=== PATIENT | female | born 1985 | race Asian ===

== ENCOUNTER 2020-08-17 07:04 | Inpatient (IN) | payer OTHER, SELFPAY ==
[~2020-08-17] VITALS: Ht 160 cm; Wt 59.0 kg
--- NOTE | 2020-08-17 08:37 | NUR ---
PATIENT HAS BEEN SCREENED AND CATEGORIZED LOW NUTRITION RISK. PATIENT WILL BE SEEN WITHIN 7 DAYS OF ADMISSION. 08/23/[address]
[2020-08-17 09:22] VITALS: BP 97/52
[2020-08-17] MEDS: TERBUTALINE 2.5 MG TAB PO SCH (20:13)
[2020-08-18] MEDS: TERBUTALINE 2.5 MG TAB PO SCH ×2 (02:04→08:17)
== END 2020-08-18 19:35 | disposition home or self-care (01) | DRG 833 ==
LOC: MLD 07:04 → OBSVTOIN 07:41
PROVIDERS: ADMIT Obstetrics & Gynecology; ATTEND Obstetrics & Gynecology
DX: O46.93 Antepartum hemorrhage, unspecified, third trimester (principal); Z3A.37 37 weeks gestation of pregnancy
CPT/HCPCS: 76815; G0378; Q0092

== ENCOUNTER 2020-08-24 02:55 | Inpatient (IN) | payer OTHER, SELFPAY ==
[~2020-08-24] VITALS: Ht 157.5 cm; Wt 59.4 kg
[2020-08-24] MEDS ORDERED: METHYLERGONOVINE 0.2 MG/ML AMP IM PRN (03:15)
[2020-08-24] MEDS ORDERED: CARBOPROST 250 MCG/ML AMP IM PRN (03:15)
[2020-08-24] MEDS ORDERED: OXYTOCIN 10 UNITS/ML VIAL IM SCH (03:15)
[2020-08-24] MEDS ORDERED: LACTATED RINGERS 1,000 ML IV SCH ×2 (03:15→07:10)
[2020-08-24 03:45] LABS: BASOPHILS % (AUTO) 0.8 % (0.0-2.0); EOSINOPHILS % (AUTO) 0.5 % (0.0-4.0); HEMATOCRIT 33.2 % (36-48); HEMOGLOBIN 11.1 g/dL (12.0-16.0); LYMPHOCYTES # (AUTO) 1.6 K/uL (2.5-16.5); LYMPHOCYTES % (AUTO) 27.6 % (20.5-51.1); MEAN CORPUSCULAR HEMOGLOBIN 31 pg (27-31); MEAN CORPUSCULAR HGB CONC 33 g/dL (33-37); MEAN CORPUSCULAR VOLUME 91.9 fL (80-94); MONOCYTES # (AUTO) 0.4 K/uL (0.8-1.0); NEUTROPHILS # (AUTO) 3.9 K/uL (1.8-7.7); NEUTROPHILS % (AUTO) 65.1 % (42.2-75.2); PLATELET COUNT (AUTO) 240 K/uL (140-450); RED BLOOD CELL COUNT(AUTO) 3.61 MIL/uL (4.20-5.40); RED CELL DISTRIBUTION WIDTH 13.6 % (11.6-13.7)
[2020-08-24 03:56] LABS: APPEARANCE,URINE CLEAR (CLEAR); BILIRUBIN,URINE NEGATIVE (NEGATIVE); BLOOD, URINE 1+ (NEGATIVE); COLOR,URINE YELLOW (YELLOW); LEUKOCYTE ESTERASE ,URINE NEGATIVE (NEGATIVE); NITRITE, URINE NEGATIVE (NEGATIVE); UGLUCOSE NEGATIVE (NEGATIVE)
[2020-08-24 03:58] LABS: ALBUMIN 2.3 g/dL (3.4-5.0); ANION GAP 16.8 (8-16); CREATININE 0.5 mg/dL (0.6-1.3); POTASSIUM 3.8 mmol/L (3.5-5.1); TOTAL BILIRUBIN 0.3 mg/dL (0.0-1.0)
[2020-08-24 04:23] LABS: WBC,URINE 0-5 /HPF (0-5)
[2020-08-24] MEDS ORDERED: CITRIC ACID/SODIUM CITRATE 30 ML UDC PO ONE (04:45)
[2020-08-24] MEDS ORDERED: CITRIC ACID/SODIUM CITRATE 30 ML UDC ONE (04:49)
[2020-08-24] MEDS ORDERED: ceFAZolin 1,000 MG VIAL ONE ×2 (04:50→05:34)
[2020-08-24] MEDS ORDERED: MORPHINE PRES FREE 10 MG/10 ML AMP IV ONE (05:11)
[2020-08-24] MEDS ORDERED: KETAMINE 500 MG/5 ML VIAL ONE (05:26)
[2020-08-24] MEDS ORDERED: METOCLOPRAMIDE 10 MG/2 ML INJ VIAL ONE (05:34)
[2020-08-24] MEDS ORDERED: OXYTOCIN 10 UNITS/ML VIAL ONE (05:34)
[2020-08-24] MEDS ORDERED: DEXAMETHASONE 4 MG/ML VIAL ONE (05:34)
[2020-08-24] MEDS ORDERED: ONDANSETRON 4 MG/2 ML VIAL ONE (05:34)
[2020-08-24] MEDS ORDERED: MEPERIDINE 25 MG/ML SYR ONE ×2 (05:34→07:56)
[2020-08-24] MEDS ORDERED: MIDAZOLAM 2 MG/2 ML VIAL ONE ×2 (05:34→07:20)
[2020-08-24] MEDS ORDERED: ePHEDrine 50 MG/ML VIAL ONE (05:34)
[2020-08-24] MEDS ORDERED: NALOXONE 0.4 MG/ML VIAL IVP PRN ×3 (07:05)
[2020-08-24] MEDS ORDERED: diphenhydrAMINE 50 MG/ML VIAL IVP PRN ×2 (07:05→07:10)
[2020-08-24] MEDS ORDERED: ONDANSETRON 4 MG/2 ML VIAL IVP PRN ×2 (07:05→07:10)
[2020-08-24] MEDS ORDERED: MEPERIDINE 25 MG/ML SYR IVP PRN (07:10)
[2020-08-24] MEDS ORDERED: HYDROmorphone 1 MG/ML AMP IVP PRN (07:10)
[2020-08-24] MEDS ORDERED: OXYTOCIN 20 UNITS in LACTATED RINGERS 1,000 ML IV SCH (07:10)
[2020-08-24] MEDS ORDERED: OXYTOCIN 20 UNITS/LR PREMIX 1,000 ML IV ONE (08:56)
[2020-08-24] MEDS ORDERED: MEASLES, MUMPS, AND RUBELLA 1 VIAL SQVAC PRN (10:20)
[2020-08-24] MEDS: KETOROLAC 30 MG/ML VIAL IM/IVP SCH ×2 (12:00→18:11)
[2020-08-24] MEDS: OXYTOCIN 20 UNITS in LACTATED RINGERS 1,000 ML IV SCH ×2 (12:30→20:30)
[2020-08-25] MEDS ORDERED: HYDROmorphone 1 MG/ML AMP IVP PRN
[2020-08-25] MEDS: KETOROLAC 30 MG/ML VIAL IM/IVP SCH (00:08)
[2020-08-25] MEDS ORDERED: OXYTOCIN 20 UNITS/LR PREMIX 1,000 ML IV ONE (04:58)
[2020-08-25] MEDS: OXYTOCIN 20 UNITS in LACTATED RINGERS 1,000 ML IV SCH (05:00)
[2020-08-25] MEDS: KETOROLAC 30 MG/ML VIAL IVP PRN ×3 (05:58→20:11)
[2020-08-25 07:48] LABS: BASOPHILS # (AUTO) 0.1 K/uL (0.00-0.22); BASOPHILS % (AUTO) 0.6 % (0.0-2.0); EOSINOPHILS % (AUTO) 0.2 % (0.0-4.0); HEMATOCRIT 24.3 % (36-48); HEMOGLOBIN 8.4 g/dL (12.0-16.0); LYMPHOCYTES # (AUTO) 1.2 K/uL (2.5-16.5); MEAN CORPUSCULAR HEMOGLOBIN 31 pg (27-31); MEAN CORPUSCULAR HGB CONC 34 g/dL (33-37); MEAN CORPUSCULAR VOLUME 91.2 fL (80-94); MONOCYTES # (AUTO) 0.5 K/uL (0.8-1.0); MONOCYTES % (AUTO) 5.3 % (1.7-9.3); NEUTROPHILS % (AUTO) 81.9 % (42.2-75.2); PLATELET COUNT (AUTO) 196 K/uL (140-450); RED BLOOD CELL COUNT(AUTO) 2.66 MIL/uL (4.20-5.40); RED CELL DISTRIBUTION WIDTH 13.6 % (11.6-13.7); WHITE BLOOD COUNT (AUTO) 9.8 K/uL (4.8-10.8)
--- NOTE | 2020-08-25 08:10 | NUR ---
PATIENT HAS BEEN SCREENED AND CATEGORIZED LOW NUTRITION RISK. PATIENT WILL BE SEEN WITHIN 7 DAYS OF ADMISSION. 08/30/[address]
[2020-08-25] MEDS ORDERED: ACETAMINOPHEN 325 MG TAB PO PRN (22:00)
[2020-08-26] MEDS: KETOROLAC 30 MG/ML VIAL IVP PRN (05:19)
[2020-08-26] MEDS ORDERED: bisacodyL 5 MG TABEC PO SCH (09:00)
[2020-08-26] MEDS ORDERED: DOCUSATE SODIUM 100 MG GELCAP PO SCH (09:00)
[2020-08-26] MEDS ORDERED: SODIUM PHOSPHATE 118 ML ENEM RC PRN (09:00)
[2020-08-26] MEDS ORDERED: IBUPROFEN 600 MG TAB PO PRN (09:00)
[2020-08-26] MEDS: SIMETHICONE 80 MG TAB.CHEW PO SCH ×2 (09:01→12:58)
[2020-08-26] MEDS ORDERED: FERR325E14 PO (15:01)
[2020-08-26] MEDS ORDERED: IBUP-1842 PO (15:02)
== END 2020-08-26 18:50 | disposition home or self-care (01) | DRG 786 ==
LOC: MLD 02:55 → MFCC 09:59
PROVIDERS: ADMIT Obstetrics & Gynecology; ATTEND Obstetrics & Gynecology
PROC: 10D00Z1 Extraction of Products of Conception, Low, Open Approach (ICD-10-PCS; principal; 2020-08-24 05:00)
PROC: 3E0234Z Introduction of Serum, Toxoid and Vaccine into Muscle, Percutaneous Approach (ICD-10-PCS; 2020-08-26)
DX: O69.1XX0 Labor and delivery complicated by cord around neck, with compression, not applicable or unspecified (principal); O45.93 Premature separation of placenta, unspecified, third trimester; O62.2 Other uterine inertia; Z20.828 Contact with and (suspected) exposure to other viral communicable diseases; Z37.0 Single live birth; Z23 Encounter for immunization; Z3A.38 38 weeks gestation of pregnancy
CPT/HCPCS: 36415; 80053; 81001; 85025; 86592; 86886; 86900; 86901; 86920; 87086; 90715; J0690; J1100; J1885; J2175; J2250; J2270; J2405; J2590; J2765; J3490; J7060; J7120